=== PATIENT | female | born 1990 | race Caucasian/White ===

== ENCOUNTER 2022-11-11 17:30 | Emergency (ER) | payer OTHER ==
[2022-11-11 18:03] VITALS: BP 146/107
[2022-11-11] MEDS ORDERED: CLINDAMYCIN 150 MG CAPSULE PO STA (19:30)
[2022-11-11] MEDS ORDERED: HYDROcod/ACETAM 5/325 MG TABLET PO STA (19:30)
--- NOTE | 2022-11-11 19:37 | ED Physician Documentation ---
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 She states that she has a known cavity on the left lower molar. Over the past several days has become increasingly painful. She has swelling to the left side of the face. No fevers. No chills. Denies any possibility of . Review of Systems Constitutional: denies: Fever : denies: Now [employer] PAST MEDICAL HISTORY - Past Medical History Past Medical History: No - Past Surgical History Past Surgical History: No - Present Medications Home Medications: Ambulatory Orders Medication Instructions Recorded Confirmed HYDROcod/ACETAM 5/325 [Nipomo 5/325] 1 - 2 ea PO Q6H PRN #14 tablet 11/11/22 Sertraline HCl 150 mg PO DAILY 11/11/22 11/11/22 clindamycin HCL [Cleocin HCl] 300 mg PO Q6H #40 cap 11/11/22 - Allergies Allergies/Adverse Reactions: Allergies Allergy/AdvReac Type Severity Reaction Status Date / Time Penicillins Allergy Rash Verified 11/11/22 18:02 - Living Situation Living Situation: reports: With family Living Arrangement: reports: At home - Social History Does the pt smoke?: No Does the pt have substance abuse?: No - Family History Family history: reports: Non contributory PD ED PE NORMAL - Vitals Vital signs reviewed: Yes - General General: Alert and oriented X 3, No acute distress - HEENT HEENT: Moist mucous membranes, Pharynx benign, Other (L lower molar - mild caries. No gingival abscess. Mild swelling. No facial cellulitis. No Dmitri's angina. Normal phonation. No trismus) - Neck Neck: Supple, no meningeal sign, No adenopathy - Derm Derm: Warm and dry - Neuro Neuro: Alert and oriented X 3 - Psych Psych: Normal mood, Normal affect Results - Vitals Vitals: Vital Signs - 24 hr 11/11/22 17:59 Temperature 36.9 C Heart Rate 92 Respiratory 16 Rate Blood Pressure 146/107 H O2 Saturation 100 Oxygen O2 Source Room air PD Medical Decision Making - ED course Complexity details: considered differential, d/w patient ED course: Patient with dental caries, will prescribe pain medication and antibiotics for home. No drainable abscess. Normal phonation. No trismus. No evidence of Ludwigs angina. Recommend that she follow-up with her dentist when she returns home to [place] next week. Patient counseled regarding signs and symptoms for which I believe and urgent re-evaluation would be necessary. Patient with good understanding of and agreement to plan and is comfortable going home at this time This document was made in part using voice recognition software. While efforts are made to proofread this document, sound alike and grammatical errors may occur. Departure - Departure Disposition: Home, Self Care Clinical Impression: Pain due to dental caries Condition: Good Instructions: ED Tooth Pain Follow-Up: your,dentist in 1 week [Other] Prescriptions: clindamycin HCL [Cleocin HCl] 300 mg PO Q6H #40 cap HYDROcod/ACETAM 5/325 [Nipomo 5/325] 1 - 2 ea PO Q6H PRN #14 tablet PRN Reason: Pain Comments: Your prescriptions were sent to the [facility] pharmacy. Please take all antibiotics until gone. Please contact your dentist for a follow-up appointment when you return home. Please return if you worsen including increasing swelling, fevers or other new or worrisome symptoms. I am prescribing a short course of narcotic pain medication for you. These are potentially dangerous and addictive medications that should be used carefully. These medications may constipate you. Take an ldck-qzi-qvgnnsa stool softener (docusate) twice daily with plenty of water while taking these medications. If you go 24 hours without a bowel movement, take [id number] miralax, per package instructions. Do not drink or drive while taking these medications. If you received narcotic or sedating medications while in the emergency department, do not drive for 24 hours. Store this medication in a safe, secure place and out of reach of children. It is a violation of federal law to give or sell this medication to another person or to use in a manner other than prescribed. The ED will not refill narcotic prescriptions, including prescriptions lost or stolen. To dispose of unwanted medications: 1. [facility] [address] in [place] has a medication drop box. They accept prescription medications (in pill form) Saturday through Saturday 9:00 a.m. to 5:00 p.m. 2. The [facility] accepts prescription medications (in pill form only) for disposal year round. Call for more information. 3. Contact the [facility] for the next [facility] sponsored prescription drug collection event. , [phone], or [phone]; Forms: PCP List Discharge Date/Time: 11/11/22 19:40
== END 2022-11-11 19:40 | disposition home or self-care (01) ==
LOC: ED 17:30
DX: K02.9 Dental caries, unspecified (principal)
CPT/HCPCS: 99282; 99283; A9270